=== PATIENT | male | born 2000 | race Two or more races ===

== ENCOUNTER 2023-01-27 22:20 | Emergency (ER) | payer SELFPAY ==
[2023-01-27] MEDS ORDERED: Naloxone 2 MG/2 ML Syringe ONE (22:25)
[2023-01-27] MEDS ORDERED: Naloxone 2 MG/2 ML Syringe IVPUSH ONE (22:28)
[2023-01-27] MEDS ORDERED: Haloperidol Lactate 5 MG/ML SDV IVPUSH ONE (22:29)
[2023-01-27] MEDS ORDERED: LORazepam 2 MG/ML SDV IVPUSH ONE (22:30)
== END 2023-01-28 00:50 | disposition home or self-care (01) ==
LOC: JD.ED 22:20
DX: F19.129 Other psychoactive substance abuse with intoxication, unspecified (principal)
CPT/HCPCS: 36415; 80053; 80306; 80307; 85025; 93005; 96374; 96375; 99284; J1630; J2060; J2310; 93010